=== PATIENT | male | born 1940 | race Caucasian/White ===

== ENCOUNTER 2020-12-04 08:42 | Inpatient (IN) | payer MEDICARE ==
[~2020-12-04] VITALS: Ht 177.8 cm; Wt 52.3 kg
[2020-12-04] VITALS (7 sets, daily range): BP systolic 137–173; BP diastolic 58–107
[~2020-12-04 08:42] MED LIST: AMLO-213 PO; CALC500T53 PO; CLON0.1T14 PO; CLON0.5T4 PO; ERGO500040 PO; FAMO20TA8 PO; INSU100I19 SQ; INSU100V28 SQ
--- NOTE | 2020-12-04 08:47 | NUR ---
TO ER BED 3, C/O slipped and fall, no loc, BS reading HI on scene, BS still on HI, md at bedside for eval.
[2020-12-04] MEDS ORDERED: ACETAMINOPHEN ES 500 MG TABLET ONE (08:59)
[2020-12-04] MEDS ORDERED: IV NS 0.9% 1,000 ML BAG IV ONE ×2 (09:00→11:00)
[2020-12-04] MEDS ORDERED: ACETAMINOPHEN ES 500 MG TABLET PO ONE (09:00)
[2020-12-04] MEDS ORDERED: METF-440 PO (09:35)
--- NOTE | 2020-12-04 09:37 | NUR ---
UNABLE TO GIVE URINE AT THIS TIME, WILL TRY AGAIN
[2020-12-04 09:46] LABS: BASOPHILS # (AUTO) 0.1 K/uL (0.0-0.2); BASOPHILS % (AUTO) 0.6 % (0.0-2.0); EOSINOPHILS % (AUTO) 1.5 % (0.0-6.0); HEMATOCRIT 35 % (39-51); HEMOGLOBIN 11.3 g/dL (13.5-17.5); LYMPHOCYTES % (AUTO) 7.6 % (20.0-44.0); MEAN CORPUSCULAR HGB CONC 33 g/dl (31.0-36.0); MEAN CORPUSCULAR VOLUME 94 fL (80-96); MONOCYTES # (AUTO) 0.9 K/uL (0.1-1.30); MONOCYTES % (AUTO) 6.8 % (2.0-12.0); NEUTROPHILS # (AUTO) 10.7 K/uL (1.8-8.9); NEUTROPHILS % (AUTO) 83.5 % (43.0-81.0); PLATELET COUNT (AUTO) 204 K/uL (150-450); RED BLOOD CELL COUNT(AUTO) 3.66 MIL/uL (4.5-6.0); WHITE BLOOD COUNT (AUTO) 12.8 K/uL (4.3-11.0)
--- NOTE | 2020-12-04 09:47 | NUR ---
TAKEN TO CT
[2020-12-04 10:08] LABS: ALANINE AMINOTRANSFERASE 32 U/L (12-78); ALBUMIN 3.6 g/dL (3.4-5.0); ALKALINE PHOSPHATASE 237 U/L (46-116); ASPARTATE AMINOTRANSFERASE 6 U/L (15-37); BILIRUBIN,DIRECT 0.2 mg/dL (0.0-0.2); BILIRUBIN,TOTAL 0.5 mg/dL (0.2-1.0); CALCIUM, SERUM 12.2 mg/dL (8.5-10.1); CARBON DIOXIDE 23 mmol/L (21-32); CHLORIDE 107 mmol/L (98-107); CREATININE 2.4 mg/dL (0.6-1.3); POTASSIUM 5.1 mmol/L (3.5-5.1); SODIUM SERUM 143 mmol/L (136-145); UREA NITROGEN, BLOOD 57 mg/dL (7-18)
[2020-12-04 10:16] LABS: GLUCOSE 798 mg/dL (74-106)
--- NOTE | 2020-12-04 10:37 | NUR ---
PANEL ON-CALL PAGED
[2020-12-04] MEDS ORDERED: INS (REG) DRIP 100 U/100 ML NS IV PRN (11:00)
--- NOTE | 2020-12-04 12:11 | NUR ---
LAB AT BEDSIDE FOR REPEAT LACTIC
--- NOTE | 2020-12-04 12:15 | NUR ---
BS 540, AWARE
--- NOTE | 2020-12-04 12:53 | NUR ---
CLAUDIA BYRD AT BEDSIDE
--- NOTE | 2020-12-04 12:54 | NUR ---
UNABLE TO GIVE URINE AT THIS TIME
--- NOTE | 2020-12-04 13:10 | NUR ---
CLAUDIA NICE (NEPHEW) [phone]
[2020-12-04] MEDS ORDERED: ONDANSETRON HCL/PF 4 MG/2 ML VIAL IVP PRN (14:00)
[2020-12-04] MEDS ORDERED: INSULIN REGULAR, HUMAN 100 UNIT in IV NS 0.9% 99 ML IV PRN (14:00)
[2020-12-04] MEDS ORDERED: Z GUARD REMEDY 2 OZ OINT TP PRN (14:00)
[2020-12-04] MEDS ORDERED: ENOXAPARIN SODIUM 40 MG/0.4 ML DISP.SYRIN SQ SCH (14:00)
[2020-12-04] MEDS ORDERED: MAG HYDROX/AL HYDROX/SIMETH 30 ML UDC PO PRN (14:00)
[2020-12-04] MEDS ORDERED: HYDROCODONE/APAP 5/325MG TABLET PO PRN (14:00)
[2020-12-04] MEDS ORDERED: ACETAMINOPHEN 325 MG TABLET PO PRN (14:00)
[2020-12-04] MEDS ORDERED: MAGNESIUM HYDROXIDE 30 ML UDC PO PRN (14:00)
[2020-12-04] MEDS ORDERED: ENOXAPARIN SODIUM 40 MG/0.4 ML DISP.SYRIN SQ ONE (14:57)
--- NOTE | 2020-12-04 15:27 | NUR ---
TAKEN TO CT Addendum: 12/04/20 at 1527 by ANGELICA FOR BED 1
--- NOTE | 2020-12-04 16:14 | NUR ---
NURSING SUP GAVE ICU 259.
[2020-12-04] MEDS: IV NS 0.9% 1,000 ML IV PRN ×2 (16:21→22:26)
--- NOTE | 2020-12-04 16:27 | NUR ---
URINE COLLECTED AND SENT TO LAB
--- NOTE | 2020-12-04 16:36 | NUR ---
REPORT GIVEN TO GAIL CODY FOR DELORES
--- NOTE | 2020-12-04 16:50 | NUR ---
COLORIST FORMULATOR NOTES RECEIVED PT FROM ER VIA CITLALI CAPONE HYPEROSMOLAR NON KETOTIC, ALERT BUT CONFUSED, APHASIC, 98% O2 SAT ON ROOM AIR, NOT ON RESPIRATORY DISTRESS, NO SOB, NO SIGNS OF PAIN, NO GRIMACINGS, SINUS RHYTHM ON MONITOR HR 65. IV ACCESS RAC G 20 PATENT INTACT WITH NS 150 ML/HR INFUSING WELL. ON 3 UNITS/HR, LAST ACCUCHECK AT 540 MG/DL. PATIENT CARE DONE, CHANGED AND CLEANED. SAFETY PRECAUTIONS IN PLACE, BED LOW LOCKED, HOB UP 3O DEG, SR UP X 2, CALL LIGHT WITHIN REACH. WILL CONTINUE TO MONITOR. PHOTOS OF SKIN ISSUES TAKEN AND PLACED INSIDE CHART.
[2020-12-04 17:11] LABS: BILIRUBIN,URINE NEGATIVE (NEGATIVE); COLOR,URINE YELLOW (YELLOW); LEUKOCYTE ESTERASE ,URINE NEGATIVE (NEGATIVE); NITRITE, URINE NEGATIVE (NEGATIVE); PROTEIN,URINE TRACE mg/dl (NEGATIVE); UGLUCOSE >=1000 mg/dL (NEGATIVE); UROBILINOGEN,URINE 0.2 EU/dL (0.2)
[2020-12-04 17:21] LABS: BACTERIA,URINE Few /HPF (None Seen); SQUAMOUS EPITHELIAL CELL,UR Few /HPF (None Seen); WBC,URINE 0-2 /HPF (0-3)
[2020-12-04 17:23] LABS: CREATININE, URINE 26.8 MG/DL (30.0-125.0); URINE TOTAL PROTEIN 66.1 mg/dL (0-11.9)
--- NOTE | 2020-12-04 18:17 | NUR ---
RN NOTES INFORMED DR. PARMJIT ALMENDAREZ, CURRENT ACCUCHECK 130 MG/DL. PER MD STOP INSULIN DRIP, CHANGE TO MODERATE ACHS SLIDING SCALE. AND PLACE ON DIABETIC DIET.
[2020-12-04] MEDS ORDERED: *INSULIN REGULAR(HUMULIN R)HUM 100 UNIT/ML VIAL SQ PRN (18:30)
[2020-12-04] MEDS ORDERED: DEXTROSE 50%-WATER 50 ML DISP.SYRIN IV PRN (18:30)
[2020-12-04 18:57] LABS: CALCIUM, SERUM 12.1 mg/dL (8.5-10.1); CARBON DIOXIDE 23 mmol/L (21-32); CHLORIDE 118 mmol/L (98-107); CREATININE 1.9 mg/dL (0.6-1.3); GLUCOSE 103 mg/dL (74-106); SODIUM SERUM 153 mmol/L (136-145); UREA NITROGEN, BLOOD 53 mg/dL (7-18)
--- NOTE | 2020-12-04 20:00 | NUR ---
SWITCH HOUSE OPERATOR NOTES Received patient awake alert and oriented x2.Follows simple commands.Able to verbalized needs. VS WNL.SR.Saturation in RA 96%-97%.No acute distress noted.IVF NS infusing to RAC site intact. Denies pain or any discomfort.Turned and repositioned.
--- NOTE | 2020-12-04 22:00 | NUR ---
GENERAL SERVICE OFFICER NOTES Patient incontinent of urine.Kept clean and dry.Noted patient SB 43-47 Remains asymptomatic. Blood sugar monitored and coverage given per sliding scale.Continue monitoring.
[2020-12-04] MEDS: BLOOD SUGAR DIAGNOSTIC 1 EACH STRIP VI SCH (22:05)
[2020-12-04] MEDS: INSULIN REGULAR, HUMAN 100 UNIT/ML 3 ML VIAL SQ PRN (22:06)
--- NOTE | 2020-12-04 22:30 | NUR ---
TEA AND SPICE SUPERVISOR NOTES Unable to do strict intake and output.Patient refused arora cath and condom cath.
[2020-12-05] VITALS (10 sets, daily range): BP systolic 84–183; BP diastolic 54–68
--- NOTE | 2020-12-05 | NUR ---
Patient awake bed bath rendered for comfort.All linens changed.Turned and repositioned. No distress noted.
--- NOTE | 2020-12-05 02:00 | NUR ---
STATEMENT REQUEST CLERK NOTES Patient awake and hungry.Snacks given with good po intake.Aspiration precaution observed.
[2020-12-05 04:35] LABS: BASOPHILS # (AUTO) 0.1 K/uL (0.0-0.2); BASOPHILS % (AUTO) 0.8 % (0.0-2.0); EOSINOPHILS % (AUTO) 8.8 % (0.0-6.0); HEMATOCRIT 36 % (39-51); HEMOGLOBIN 11.7 g/dL (13.5-17.5); LYMPHOCYTES # (AUTO) 2.1 K/uL (0.8-4.8); LYMPHOCYTES % (AUTO) 13.8 % (20.0-44.0); MEAN CORPUSCULAR HGB CONC 33 g/dl (31.0-36.0); MEAN CORPUSCULAR VOLUME 93 fL (80-96); MONOCYTES # (AUTO) 0.9 K/uL (0.1-1.30); MONOCYTES % (AUTO) 5.8 % (2.0-12.0); NEUTROPHILS # (AUTO) 10.6 K/uL (1.8-8.9); NEUTROPHILS % (AUTO) 70.8 % (43.0-81.0); PLATELET COUNT (AUTO) 210 K/uL (150-450); RED BLOOD CELL COUNT(AUTO) 3.84 MIL/uL (4.5-6.0); WHITE BLOOD COUNT (AUTO) 14.9 K/uL (4.3-11.0)
[2020-12-05 04:55] LABS: CHOLESTEROL 116 mg/dL (<200); HDL CHOLESTEROL 40 mg/dL (40-60); LDL 66 mg/dL (0-99); THYROID STIMULATING HORMONE 1.401 uIU/mL (0.358-3.74); TRIGLYCERIDES 79 mg/dL (30-150)
[2020-12-05 04:56] LABS: CALCIUM, SERUM 11.7 mg/dL (8.5-10.1); CARBON DIOXIDE 24 mmol/L (21-32); CHLORIDE 119 mmol/L (98-107); CREATININE 1.7 mg/dL (0.6-1.3); GLUCOSE 163 mg/dL (74-106); MAGNESIUM 2.7 mg/dL (1.8-2.4); PHOSPHORUS 4.4 mg/dL (2.5-4.9); POTASSIUM 4.1 mmol/L (3.5-5.1); SODIUM SERUM 152 mmol/L (136-145); UREA NITROGEN, BLOOD 45 mg/dL (7-18)
[2020-12-05] MEDS: IV NS 0.9% 1,000 ML IV PRN (05:05)
--- NOTE | 2020-12-05 06:17 | NUR ---
PERFUSIONIST NOTES PLEASE DISREGARD CRITICAL NOTIFICATION ALBUMIN AND BUN.WRONG ENTRY.
--- NOTE | 2020-12-05 06:30 | NUR ---
ELECTRICAL LINEMAN NOTES Patient resting in no acute distress.Afebrile.Remains Wil hi 30's to 40's.- but goes up to 60's with activity.Denies chest pain or sob.Saturation 97%-99% on RA.Incontinent of urine large amount.Kept clean and dry.No BM noted.Turned and repositioned q 2 hrs.IVF infusing well. Will endorse to day shift for further care and management.
[2020-12-05] MEDS ORDERED: PANTOPRAZOLE 40 MG TABLET.DR PO SCH (07:30)
--- NOTE | 2020-12-05 08:00 | NUR ---
RN NOTES SEEN PATIENT A/A/O X2, FORGETFUL, ROOM AIR NO ACUTE RESPIRATORY DISTRESS. PATIENT NOTED HE TRYING TO GO BATHROOM. PATIENT HIGH FALL RIST, WILLING TO SEE P TODAY. BS-153 MG/DL, COVERAGE GIVEN, ADMINISTERED SCHEDULED MEDICATION. TOLERATED BREAKFAST 70% SELF. NEEDS ATTENDED AND ANTICIPATED. PATIENT WILL DOWNGRADE TODAY WAITING FOR BED. CALL LIGHT WITHIN TO REACH. WILL MONITORING.
[2020-12-05] MEDS: BLOOD SUGAR DIAGNOSTIC 1 EACH STRIP VI SCH ×2 (08:19→11:40)
[2020-12-05] MEDS: INSULIN REGULAR, HUMAN 100 UNIT/ML 3 ML VIAL SQ PRN ×2 (08:20→11:47)
--- NOTE | 2020-12-05 10:00 | NUR ---
rn notes transferred patient to the med/surge unit room 116 bed 1. patient stable, vss. Bedside report given RN follow plan of care.
--- NOTE | 2020-12-05 10:08 | NUR ---
RECEIVED FROM ICU AWAKE ,ALERT, NO ACUTE DISTRESS.
--- NOTE | 2020-12-05 10:49 | NUR ---
MS RN NOTES NOTIFIED THIS MORNING, ELEVATE NA, CL. ORDERS OBTAIN. IV DISCONTINUED.
--- NOTE | 2020-12-05 11:55 | NUR ---
ACCUCHECK PERFORMED ON PT. BLOOD SUGAR 164 WITH COVERAGE OF 3 UNITS. PT REFUSED INSULIN. NOTIFIED.
[2020-12-05] MEDS ORDERED: Blood Sugar Diagnostic VI (13:30)
[2020-12-05] MEDS ORDERED: ENOXAPARIN SODIUM 30 MG/0.3 ML DISP.SYRIN SQ SCH (15:00)
--- NOTE | 2020-12-05 15:09 | NUR ---
PROVIDED EDUCATION TO PT ON MEDICATION, LOVENOX, HOWEVER PT REFUSED MEDICATION.
--- NOTE | 2020-12-05 17:46 | NUR ---
RN CLOSING NOTES PT WAS DISCHARGED PER MD ORDER. IV DISCHARGED AND DRY DRESSING APPLIED. NO SIGNS OF INFECTION DISCHARGE INSTRUCTIONS GIVEN WITH FOLLOW UP CARE INSTRUCTIONS
== END 2020-12-05 17:32 | disposition home health service (06) | DRG 637 ==
LOC: ER 08:47 → ICU 16:16 → MEDSG1 12-05 10:07
DX: E11.00 Type 2 diabetes mellitus with hyperosmolarity without nonketotic hyperglycemic-hyperosmolar coma (NKHHC) (principal); N17.0 Acute kidney failure with tubular necrosis; G93.49 Other encephalopathy; F03.90 Unspecified dementia, unspecified severity, without behavioral disturbance, psychotic disturbance, mood disturbance, and anxiety; E86.0 Dehydration; I10 Essential (primary) hypertension; I25.10 Atherosclerotic heart disease of native coronary artery without angina pectoris; Z79.84 Long term (current) use of oral hypoglycemic drugs; Z20.822 Contact with and (suspected) exposure to COVID-19; Z79.899 Other long term (current) drug therapy; D72.829 Elevated white blood cell count, unspecified; E83.52 Hypercalcemia; D64.9 Anemia, unspecified; M47.815 Spondylosis without myelopathy or radiculopathy, thoracolumbar region; Z96.641 Presence of right artificial hip joint; Y92.009 Unspecified place in unspecified non-institutional (private) residence as the place of occurrence of the external cause; W01.0XXA Fall on same level from slipping, tripping and stumbling without subsequent striking against object, initial encounter
CPT/HCPCS: 36415; 70450-TC; 71045-TC; 76770-TC; 80048-TC; 80061-TC; 80076-TC; 81001; 82570-TC; 82962-TC; 83605-TC; 83735-TC; 83970; 84100-TC; 84155-TC; 84300-TC; 84443-TC; 84484-TC; 85025-TC; 87040-TC; 87081-TC; 97116-TC; 97530-TC; C9803; G0378; J1650; J1815; J7030

== ENCOUNTER 2021-03-05 10:01 | Inpatient (IN) | payer MEDICARE ==
[~2021-03-05] VITALS: Ht 172.7 cm; Wt 42.2 kg
[~2021-03-05 10:01] MED LIST changes: +Blood Sugar Diagnostic VI; -CALC500T53 PO; -CLON0.1T14 PO; -CLON0.5T4 PO; -ERGO500040 PO; -FAMO20TA8 PO; -INSU100I19 SQ; -INSU100V28 SQ; +METF-440 PO
--- NOTE | 2021-03-05 10:09 | NUR ---
keron [phone]
--- NOTE | 2021-03-05 10:10 | NUR ---
DR. GARCÍA AT BS FOR EVAL.
--- NOTE | 2021-03-05 10:29 | NUR ---
bibra39, from home, c/o sob 98% on room air. PT AAOX3, VSS. RR EVEN & UNLABORED. DENIES CP, DIZZINESS, N/V AT THIS TIME. PLACED ON OVERAGE SHORTAGE AND DAMAGE CLERK, SR. O2 SAT 98% RA. WILL CONT TO MONITOR.
[2021-03-05] MEDS ORDERED: BLOO-668 IN (10:33)
[2021-03-05 10:46] LABS: BASOPHILS # (AUTO) 0.1 K/uL (0.0-0.2); BASOPHILS % (AUTO) 0.4 % (0.0-2.0); EOSINOPHILS % (AUTO) 0.4 % (0.0-6.0); HEMATOCRIT 43 % (39-51); HEMOGLOBIN 13.7 g/dL (13.5-17.5); LYMPHOCYTES # (AUTO) 1.2 K/uL (0.8-4.8); LYMPHOCYTES % (AUTO) 6.8 % (20.0-44.0); MEAN CORPUSCULAR HGB CONC 32 g/dl (31.0-36.0); MEAN CORPUSCULAR VOLUME 92 fL (80-96); MONOCYTES # (AUTO) 0.9 K/uL (0.1-1.30); MONOCYTES % (AUTO) 5.3 % (2.0-12.0); NEUTROPHILS # (AUTO) 15.7 K/uL (1.8-8.9); NEUTROPHILS % (AUTO) 87.1 % (43.0-81.0); PLATELET COUNT (AUTO) 326 K/uL (150-450); RED BLOOD CELL COUNT(AUTO) 4.63 MIL/uL (4.5-6.0); WHITE BLOOD COUNT (AUTO) 18.1 K/uL (4.3-11.0)
[2021-03-05 10:57] LABS: CALCIUM, SERUM 11.8 mg/dL (8.5-10.1); CARBON DIOXIDE 22 mmol/L (21-32); CHLORIDE 106 mmol/L (98-107); CREATININE 2.8 mg/dL (0.6-1.3); GLUCOSE 196 mg/dL (74-106); POTASSIUM 3.2 mmol/L (3.5-5.1); SODIUM SERUM 142 mmol/L (136-145)
[2021-03-05 11:01] LABS: UREA NITROGEN, BLOOD 80 mg/dL (7-18)
--- NOTE | 2021-03-05 11:01 | NUR ---
ABNORMAL LAB BUN 80
[2021-03-05 11:10] LABS: ALANINE AMINOTRANSFERASE 15 U/L (12-78); ALBUMIN 3.3 g/dL (3.4-5.0); ALKALINE PHOSPHATASE 119 U/L (46-116); ASPARTATE AMINOTRANSFERASE 11 U/L (15-37); BILIRUBIN,DIRECT 0.2 mg/dL (0.0-0.2); BILIRUBIN,TOTAL 0.6 mg/dL (0.2-1.0); TOTAL PROTEIN, SERUM 7.9 g/dL (6.4-8.2)
--- NOTE | 2021-03-05 11:48 | NUR ---
CALLED NURSING SUP REGARDING PT BED
--- NOTE | 2021-03-05 11:50 | NUR ---
PT RESTING, EASILY AWAKEN BY VERBAL STIMULI. DENIES CP, SOB, DIZZINESS, N/V AT THIS TIME. WILL CONT TO MONITOR.
--- NOTE | 2021-03-05 11:55 | NUR ---
PAGED [facility].
[2021-03-05] MEDS ORDERED: MAG HYDROX/AL HYDROX/SIMETH 30 ML UDC PO PRN (13:30)
[2021-03-05] MEDS ORDERED: POTASSIUM CHLORIDE 20 MEQ TAB.PRT.SR PO ONE (13:30)
[2021-03-05] MEDS ORDERED: ACETAMINOPHEN 325 MG TABLET PO PRN (13:30)
[2021-03-05] MEDS ORDERED: MAGNESIUM HYDROXIDE 30 ML UDC PO PRN (13:30)
[2021-03-05] MEDS ORDERED: Z GUARD REMEDY 2 OZ OINT TP PRN (13:30)
[2021-03-05] MEDS ORDERED: ONDANSETRON HCL/PF 4 MG/2 ML VIAL IVP PRN (13:30)
--- NOTE | 2021-03-05 13:43 | NUR ---
REPORT GIVEN TO [place] FOR DELORES.
[2021-03-05 14:00] VITALS: BP 143/54
--- NOTE | 2021-03-05 14:00 | NUR ---
tele manager house: admission admitted this 80 year old male pt from [facility] with dx: paty. awake, a/ox3. denies sob, chest pain, and n/v. pt c/o constipation with rectal pain. kept comfortable. kept clean and dry. place pt on tele sb=55. vss, afebrile. noted with scarring to sacral and left hip. wound consult ordered. oriented to room and surroundings. will continue to monitor.
[2021-03-05] MEDS: IV 1/2NS 1000 ML 1,000 ML IV PRN (15:18)
--- NOTE | 2021-03-05 15:45 | NUR ---
tele commercial truck driver: notes dr. palomo notified re: episodes of bradycardia with pvc's on the 40's-50 and with lowest of 39 and says to continue to monitor. cn aware.
--- NOTE | 2021-03-05 17:45 | NUR ---
tele varying exceptionalities teacher: md visit dr. palomo at bedside at this time.
--- NOTE | 2021-03-05 19:10 | NUR ---
tele preparation department supervisor: notes bedside report given to guerrero (wolfgang) for continuity of care.
--- NOTE | 2021-03-05 19:55 | NUR ---
FACILITIES MANAGEMENT EXECUTIVE OPENING NOTES RECEIVED PATIENT AWAKE IN BED RESTING. PT'S ALERT AND ORIENTEDX3. PATIENT'S STABLE ON RA. PATIENT'S CONNECTED TO A TELE MONITOR SHOWING NO CARDIAC DISTRESS AT THIS TIME. IV ACCESS NOTED ON RAC #20 WHICH IS RUNNING 1/2 NS @75ML/HR. PATIENT'S IN NO ACUTE DISTRESS AT THIS TIME. SAFETY MEASURES IN PLACE: BED LOCKED, BED ALARM ON, SR UPX3, AND CALL LIGHT WITHIN REACH OF THE PATIENT. WILL CONTINUE TO MONITOR THE PATIENT.
[2021-03-05 20:00] VITALS: BP 121/77
--- NOTE | 2021-03-05 21:33 | NUR ---
Pt confused and uncooperative. Per GLO Sarmiento, do echo tomorrow.
[2021-03-05] MEDS: ZOLPIDEM TARTRATE 5 MG TABLET PO PRN ×2 (21:47→23:59)
--- NOTE | 2021-03-05 22:48 | NUR ---
TREE WARDEN NOTES PATIENT HAD AN EPISODE OF VOMITING. PATIENT WAS GIVEN 4MG OF ZOFRAN IV AT THIS TIME. WILL REASSESS THE PATIENT AT 2318.
--- NOTE | 2021-03-05 23:59 | NUR ---
SOCIAL WORK SUPERVISOR NOTES PATIENT C/O NO SLEEP. PATIENT WAS GIVEN 5MG OF AMBIEN PO AT THIS TIME. WILL REASSESS THE PATIENT. AT 0059.
[2021-03-06] VITALS: BP 117/69
[2021-03-06] MEDS ORDERED: HEPARIN SODIUM, PORCINE 5000 UNITS/1 ML VIAL IV ONE (00:30)
[2021-03-06] MEDS ORDERED: HEPARIN INFUSION/D5W 500 ML IV PRN (00:30)
[2021-03-06] MEDS: IV 1/2NS 1000 ML 1,000 ML IV PRN ×2 (03:55→18:47)
[2021-03-06 04:00] VITALS: BP 115/70
--- NOTE | 2021-03-06 06:38 | NUR ---
HOT AIR FURNACE INSTALLER REPAIRER CLOSING NOTES PATIENT WAS SEEN AWAKE RESTING IN BED. PT'S ALERT AND ORIENTED X3 AND CAN BE FORGETFUL AT TIMES.. PATIENT'S STABLE ON RA. PATIENT'S CONNECTED TO A TELE MONITOR SHOWING SINUS RHYTHM. IV ACCESS NOTED ON RFA G#22 WHICH IS INTACT, PATENT, AND FLUSHING WELL. PATIENT'S IN NO ACUTE DISTRESS AT THIS TIME. SAFETY MEASURES IN PLACE: BED LOCKED, BED ALARM ON, SR UPX3, AND CALL LIGHT WITHIN REACH OF THE PATIENT. WILL ENDORSE CARE TO THE DAY SHIFT NURSE.
--- NOTE | 2021-03-06 07:35 | NUR ---
SCRUM COACH OPENING NOTES RECEIVED PATIENT IN BED AWAKE, ALERT AND ORIENTED X3 WITH EPISODES OF FORGETFULNESS AND CONFUSION. PATIENT IS CONNECTED TO A TELE MONITOR SHOWING SINUS RHYTHM. IV ACCESS NOTED ON RFA G#22 WHICH IS INTACT, PATENT, AND FLUSHING WELL. PATIENT'S IN NO ACUTE DISTRESS AT THIS TIME. SAFETY MEASURES IN PLACE: BED LOCKED, BED ALARM ON, SR UPX3, AND CALL LIGHT WITHIN REACH OF THE PATIENT. WILL CONTINUE TO MONITOR.
[2021-03-06 08:00] VITALS: BP 126/75
[2021-03-06] MEDS: PANTOPRAZOLE 40 MG TABLET.DR PO SCH (08:04)
--- NOTE | 2021-03-06 09:02 | NUR ---
WOUND CARE CONSULT: PT PRESENTS WITH CACHEXIA, SCARRING TO LEFT HIP AND SACRUM, PRESENT ON ADMISSION. RECOMMENDATIONS MADE FOR SKIN PROTECTION. DISCUSSED WITH NURSING STAFF. PT IS ON [facility] BED. IN AGREEMENT WITH PLAN OF CARE. Addendum: 03/06/21 at 0904 by DUY ANGEL WNDNU Amended: Links added.
[2021-03-06 09:48] LABS: BASOPHILS % (AUTO) 0.1 % (0.0-2.0); HEMATOCRIT 41 % (39-51); HEMOGLOBIN 13.5 g/dL (13.5-17.5); LYMPHOCYTES # (AUTO) 0.5 K/uL (0.8-4.8); LYMPHOCYTES % (AUTO) 2.1 % (20.0-44.0); MEAN CORPUSCULAR HGB CONC 33 g/dl (31.0-36.0); MEAN CORPUSCULAR VOLUME 92 fL (80-96); MONOCYTES % (AUTO) 4.1 % (2.0-12.0); NEUTROPHILS # (AUTO) 22.6 K/uL (1.8-8.9); NEUTROPHILS % (AUTO) 93.7 % (43.0-81.0); PLATELET COUNT (AUTO) 305 K/uL (150-450); WHITE BLOOD COUNT (AUTO) 24.1 K/uL (4.3-11.0)
[2021-03-06 10:27] LABS: CALCIUM, SERUM 11.8 mg/dL (8.5-10.1); CARBON DIOXIDE 22 mmol/L (21-32); CHLORIDE 104 mmol/L (98-107); CREATININE 3.3 mg/dL (0.6-1.3); GLUCOSE 181 mg/dL (74-106); MAGNESIUM 2.7 mg/dL (1.8-2.4); POTASSIUM 4.4 mmol/L (3.5-5.1); SODIUM SERUM 144 mmol/L (136-145)
[2021-03-06 11:03] LABS: UREA NITROGEN, BLOOD 90 mg/dL (7-18)
--- NOTE | 2021-03-06 11:09 | NUR ---
SS Consult requested for elderly pt. living alone and cachectic. Pt. is a 80-year-old male who presents to the ED with shortness of breath. Per the EMR, the caregiver called his family and requested the pt. come to the ED. Upon SS consult, pt. was alert and oriented x1 (name). Pt. presented with a dysphoric mood and appeared unkempt. Pt. presented with poor insight and slow speech. Pt. provided appropriate eye contact. SW explored pt.s living situation. Pt. was unable to state his address. Pt. stated he lived alone and cooked for himself. Pt. stated a caregiver named, Maddy Garcia, came and saw him 3-4 times a week. Pt. was unable to provide contact information for the caregiver. Pt. stated he was in contact with his nephew Willian Garcia. Pt. was unable to provide contact information for Willian. SW explored whether pt. is ambulatory. Pt. stated he needed to vomit and asked for a nurse. Pt. was unable to complete the rest of the interview. PEG completed an APS report for self-neglect. Intake # : [id number]
--- NOTE | 2021-03-06 11:27 | NUR ---
PEG spoke with [facility] regarding pt.'s placement. CM will look for placement for pt. once he is ready for discharge.
[2021-03-06] MEDS ORDERED: DEXTROSE 50%-WATER 50 ML DISP.SYRIN IV PRN (14:30)
[2021-03-06 16:00] VITALS: BP 126/75
[2021-03-06] MEDS: BLOOD SUGAR DIAGNOSTIC 1 EACH STRIP IN SCH ×2 (16:39→22:08)
--- NOTE | 2021-03-06 16:39 | NUR ---
LONG HAUL TRUCK DRIVER NOTE BS 229 MG/DL,WITHHOLD INSULIN COVERAGE PATIENT NOT EATING.
--- NOTE | 2021-03-06 17:40 | NUR ---
VARNISH SUPERVISOR NOTES DR HADDAD ORDERED BLOOD SUGAR CHECK ACHS WITH LOW SSI COVERAGE AND URINALYSIS ADDITIONAL ORDER FOR URINE CULTURE AND BLOOD CULTURE X 2.
--- NOTE | 2021-03-06 18:12 | NUR ---
PLANNING INTERN CLOSING NOTES PATIENT IN BED AWAKE, RESTING COMFORTABLY. PT'S ALERT AND ORIENTED X2 WITH CONFUSION FORGETFULNESS PATIENT'S ON O2 INHALATION AT 2 LPM VIA NASAL CANNULA. PATIENT'S CONNECTED TO A TELE MONITOR SHOWING SINUS RHYTHM. IV ACCESS ON RFA G#22 WHICH IS INTACT, PATENT, AND FLUSHING WELL. PATIENT'S IN NO ACUTE DISTRESS AT THIS TIME. SAFETY MEASURES IN PLACE: BED LOCKED, BED ALARM ON, SR UPX3, AND CALL LIGHT WITHIN REACH OF THE PATIENT. WILL ENDORSE CARE TO THE NEXT SHIFT.
--- NOTE | 2021-03-06 19:35 | NUR ---
leather goods ii assembler opening notes Received Pt from morning nurse. Pt is sitting in bed comfortably watching TV. Pt is alert and oriented X3. Respiration is normal in 2 L NC. No SOB. No S/S of distress noted. Pt denies any pain at this time. Tele monitor showed SR hr at 90. IV site at RFA # 22 is clean, intact and infusing well 1/2 NS@ 75 ml/hr. Safety precautions is maintained. Bed at low position, brakes locked, side rails upX3. bed alarm is on and call light is within reach. Will continue to monitor.
[2021-03-06 20:00] VITALS: BP 146/52
[2021-03-06] MEDS: PIPERACILLIN /TAZOBACTAM 2.25 G in IV D5W 50 ML IV SCH (21:29)
--- NOTE | 2021-03-06 21:40 | NUR ---
RN notes Pt is complaining of generalized pain and requesting pain med. administered tylenol 325 mg/2 tabs/po/prn as ordered for pain. Safety precaution is maintained. Will continue to monitor.
[2021-03-06 21:49] LABS: BILIRUBIN,URINE NEGATIVE (NEGATIVE); COLOR,URINE YELLOW (YELLOW); LEUKOCYTE ESTERASE ,URINE MODERATE (NEGATIVE); NITRITE, URINE NEGATIVE (NEGATIVE); PH,URINE 5.5 (5.0-8.0); PROTEIN,URINE 30 mg/dl (NEGATIVE); UGLUCOSE NEGATIVE (NEGATIVE); UROBILINOGEN,URINE 0.2 EU/dL (0.2)
[2021-03-06 22:03] LABS: BACTERIA,URINE 4+ /HPF (None Seen); RBC,URINE 51-80 /HPF (0-2); SQUAMOUS EPITHELIAL CELL,UR 0-2 /HPF (None Seen); WBC,URINE TOO NUMEROUS TO COUN /HPF (0-3)
--- NOTE | 2021-03-06 22:30 | NUR ---
RN notes Pt's blood sugar HS 222. Held insulin coverage due to Pt refusing to eat. Offered Pt to eat several times and explained risks and benefits. Pt keep refusing. Will continue to monitor.
--- NOTE | 2021-03-06 22:41 | NUR ---
RN notes Inserted straight cath but Unsuccessful to get UA. Pt keep refusing and stated "No!! No!! No!!" Explained risks and benefits. Pt keep refusing. Will try again later.
[2021-03-06] MEDS: ZOLPIDEM TARTRATE 5 MG TABLET PO PRN (23:48)
--- NOTE | 2021-03-06 23:49 | NUR ---
RN notes Pt requesting a sleeping pill. Administered ambien 5 mg/1 tab/po /prn as ordered for sleeping. safety precautions is maintained. Will continue to monitor.
[2021-03-07] VITALS: BP 120/80
--- NOTE | 2021-03-07 00:12 | NUR ---
RN notes RT at the bedside to help with suctioning. O2 sat is 93% on 2 L NC. No SOB. No S/S of distress noted.
[2021-03-07 04:00] VITALS: BP 114/68
[2021-03-07] MEDS: PIPERACILLIN /TAZOBACTAM 2.25 G in IV D5W 50 ML IV SCH ×3 (05:09→21:09)
[2021-03-07 06:01] LABS: BASOPHILS % (AUTO) 0.2 % (0.0-2.0); HEMATOCRIT 39 % (39-51); HEMOGLOBIN 12.5 g/dL (13.5-17.5); LYMPHOCYTES # (AUTO) 0.5 K/uL (0.8-4.8); LYMPHOCYTES % (AUTO) 2.7 % (20.0-44.0); MEAN CORPUSCULAR HGB CONC 33 g/dl (31.0-36.0); MEAN CORPUSCULAR VOLUME 93 fL (80-96); MONOCYTES # (AUTO) 1.1 K/uL (0.1-1.30); MONOCYTES % (AUTO) 6.3 % (2.0-12.0); NEUTROPHILS # (AUTO) 16.3 K/uL (1.8-8.9); NEUTROPHILS % (AUTO) 90.8 % (43.0-81.0); PLATELET COUNT (AUTO) 286 K/uL (150-450); RED BLOOD CELL COUNT(AUTO) 4.16 MIL/uL (4.5-6.0)
[2021-03-07 06:24] LABS: CALCIUM, SERUM 11.6 mg/dL (8.5-10.1); CARBON DIOXIDE 18 mmol/L (21-32); CHLORIDE 102 mmol/L (98-107); CREATININE 3.8 mg/dL (0.6-1.3); GLUCOSE 238 mg/dL (74-106); MAGNESIUM 2.6 mg/dL (1.8-2.4); POTASSIUM 3.9 mmol/L (3.5-5.1); SODIUM SERUM 141 mmol/L (136-145)
[2021-03-07 06:26] LABS: UREA NITROGEN, BLOOD 114 mg/dL (7-18)
[2021-03-07 06:27] LABS: PHOSPHORUS 8.3 mg/dL (2.5-4.9)
--- NOTE | 2021-03-07 07:00 | NUR ---
diversity manager closing notes Pt is resting in bed comfortably. Pt is alert and oriented X3. Respiration is normal in room air. No SOB. No S/S of distress noted. Tele monitor showed SR hr at 83. IV site at RFA # 22 is clean, intact and infusing well 1/2 NS@ 75 ml/hr. Pt keep refusing to eat. offered several times. Kept Pt clean, dry and comfortable. Safety precautions is maintained. Bed at low position, brakes locked, side rails upX3. bed alarm is on and call light is within reach. Will endorse to am nurse for DELORES.
--- NOTE | 2021-03-07 07:00 | NUR ---
RN notes Pt's blood sugar AC is 217. No coverage is given due to Pt keep refusing to eat.
[2021-03-07] MEDS: BLOOD SUGAR DIAGNOSTIC 1 EACH STRIP IN SCH ×4 (07:33→23:08)
--- NOTE | 2021-03-07 07:35 | NUR ---
COMMUNITY ASSOCIATION MANAGER OPENING NOTES RECEIVED PATIENT AWAKE, IN BED.A/O X 3. NO S/SX OF DISTRESS NOTED.NO SOB. BREATHING IS EVEN AND UNLABORED. PT WITH EXTERNAL ENVIRONMENTAL SCIENCE PROFESSOR WITH READING OF SINUS RHYTHM IN 80'S. IV ACCESS RFA#22 PATENT AND INTACT WITH 1/2 NS 0.45% RUNNING AT 75MLS/HR. SAFETY PRECAUTIONS IMPLEMENTED WITH BED LOCKED AND AT LOWEST POSITION AND SIDE RAILS UP X2. CALL LIGHT WITHIN REACH AT ALL TIMES. WILL CONTINUE TO MONITOR PATIENT THROUGHOUT SHIFT.
[2021-03-07 08:00] VITALS: BP 113/58
[2021-03-07] MEDS: AMLODIPINE BESYLATE 10 MG TABLET PO SCH (08:22)
[2021-03-07] MEDS: PANTOPRAZOLE 40 MG TABLET.DR PO SCH (08:22)
--- NOTE | 2021-03-07 11:19 | NUR ---
FOOD ASSEMBLER COMMISSARY KITCHEN NOTES MADE DR. TALAMANTES AWARE OF US KIDNEY RESULTS WITH NO NEW ORDERS. INFORMED DR. TALAMANTES BUN 114 AND CREATININE 3.8 LEVEL
[2021-03-07] MEDS: INSULIN REGULAR, HUMAN 100 UNIT/ML 3 ML VIAL SQ PRN (11:35)
[2021-03-07 12:05] VITALS: BP 98/53
[2021-03-07] MEDS: ENSURE ENLIVE 237 ML LIQUID (VANILLA) PO SCH (16:32)
[2021-03-07] MEDS: IV 1/2NS 1000 ML 1,000 ML IV PRN (17:57)
--- NOTE | 2021-03-07 18:50 | NUR ---
MS RN CLOSING NOTES PATIENT IS ASLEEP IN BED, EASY TO AROUSE. A/O X 2, CONFUSED. NO S/SX OF DISTRESS NOTED.NO SOB. BREATHING IS EVEN AND UNLABORED. IV ACCESS RFA#22 PATENT AND INTACT WITH 1/2 NS 0.45% RUNNING AT 100MLS/HR. SAFETY PRECAUTIONS MAINTAINED CALL LIGHT WITHIN REACH AT ALL TIMES. WILL ENDORSE CONTINUITY OF CARE TO ONCOMING SHIFT.
--- NOTE | 2021-03-07 19:35 | NUR ---
RN NOTES RECEIVED PATIENT SLEEPING BUT AROUSABLE, A/OX2, SKINNY, NOT IN DISTRESS, CALL LIGHT WITHIN REACH, SIDERAILSUPX2, WILL CONTINUE TO MONITOR
--- NOTE | 2021-03-07 19:45 | NUR ---
RN NOTES SPOKE TO HIS NEPHEW CLAUDIA AND GAVE AN UPDATE
[2021-03-07 20:00] VITALS: BP 117/72
--- NOTE | 2021-03-07 22:00 | NUR ---
RN NOTES PATIENT BLOOD SUGAR -193, COVERAGE WAS NOT GIVEN , PT. REFUSED TO EAT
[2021-03-08] MEDS: IV 1/2NS 1000 ML 1,000 ML IV PRN ×2 (03:12→14:29)
[2021-03-08] MEDS: PIPERACILLIN /TAZOBACTAM 2.25 G in IV D5W 50 ML IV SCH ×3 (04:20→20:34)
[2021-03-08 06:57] LABS: BASOPHILS % (AUTO) 0.1 % (0.0-2.0); HEMATOCRIT 35 % (39-51); HEMOGLOBIN 11.4 g/dL (13.5-17.5); LYMPHOCYTES # (AUTO) 0.5 K/uL (0.8-4.8); LYMPHOCYTES % (AUTO) 3.5 % (20.0-44.0); MEAN CORPUSCULAR HGB CONC 33 g/dl (31.0-36.0); MEAN CORPUSCULAR VOLUME 92 fL (80-96); NEUTROPHILS # (AUTO) 13.3 K/uL (1.8-8.9); NEUTROPHILS % (AUTO) 89.4 % (43.0-81.0); PLATELET COUNT (AUTO) 218 K/uL (150-450); RED BLOOD CELL COUNT(AUTO) 3.76 MIL/uL (4.5-6.0); WHITE BLOOD COUNT (AUTO) 14.9 K/uL (4.3-11.0)
--- NOTE | 2021-03-08 06:59 | NUR ---
RN NOTES BLOOD SUGAR -204, COVERAGE WAS NOT GIVEN ., PT REFUSED TO EAT, MORNING CARE RENDERED, TORI UPX2, PT. NEEDS ATTENDED
[2021-03-08 07:11] LABS: CALCIUM, SERUM 12.2 mg/dL (8.5-10.1); CARBON DIOXIDE 12 mmol/L (21-32); CHLORIDE 102 mmol/L (98-107); GLUCOSE 216 mg/dL (74-106); MAGNESIUM 2.7 mg/dL (1.8-2.4); POTASSIUM 3.9 mmol/L (3.5-5.1); SODIUM SERUM 139 mmol/L (136-145)
--- NOTE | 2021-03-08 07:30 | NUR ---
MS RN OPENING NOTES RECEIVED PATIENT RESTING ON BED AND A/O X2. ON O2 AT 2LPM VIA NASAL CANNULA SATURATING WELL. NO SOB NOTED. NOT IN DISTRESS. WITH IV ACCESS AT RIGHT FOREARM G22 WITH 1/2NS AT 75ML/HR INFUSING WELL. SAFETY MEASURES IN PLACE. CALL LIGHT WITHIN REACH. BED ON LOWEST AND LOCKED POSITION X3. WILL CONTINUE TO MONITOR.
[2021-03-08] MEDS: BLOOD SUGAR DIAGNOSTIC 1 EACH STRIP IN SCH ×4 (07:33→22:15)
[2021-03-08 08:35] LABS: PHOSPHORUS 8.3 mg/dL (2.5-4.9); UREA NITROGEN, BLOOD 130 mg/dL (7-18)
[2021-03-08] MEDS: PANTOPRAZOLE 40 MG TABLET.DR PO SCH (08:47)
[2021-03-08] MEDS: AMLODIPINE BESYLATE 10 MG TABLET PO SCH (08:48)
[2021-03-08] MEDS: ENSURE ENLIVE 237 ML LIQUID (VANILLA) PO SCH ×2 (08:56→17:00)
[2021-03-08] MEDS ORDERED: FUROSEMIDE 20 MG/2 ML VIAL IV ONE (14:00)
[2021-03-08] MEDS ORDERED: PAMIDRONATE 90 MG in IV NS 0.9% 500 ML IV ONE (15:00)
--- NOTE | 2021-03-08 17:05 | NUR ---
RN NOTES SPOKE WITH CLAUDIA VIA PHONE AND HE IS REFUSING TO GIVE CONSENT FOR PATIENT'S NGT PLACEMENT. GAVE HIS CONTACT NUMBER TO DR. HADDAD INFORMING DR. HADDAD THAT HE WANTS TO TALK TO HER REGARDING THE PATIENT.
[2021-03-08] MEDS: CINACALCET HCL 30 MG TABLET PO SCH (17:37)
--- NOTE | 2021-03-08 18:53 | NUR ---
MS RN CLOSING NOTES PATIENT RESTING ON BED AND A/O X2-3. ON O2 AT 2LPM VIA NASAL CANNULA SATURATING WELL. NO SOB NOTED. NOT IN DISTRESS. WITH IV ACCESS AT RIGHT FOREARM G22 WITH 1/2NS AT 75ML/HR INFUSING WELL. DUE MEDS GIVEN. SAFETY MEASURES IN PLACE. CALL LIGHT WITHIN REACH. BED ON LOWEST AND LOCKED POSITION X3. WILL ENDORSE TO NEXT SHIFT FOR DELORES.
--- NOTE | 2021-03-08 19:24 | NUR ---
MS RN OPENING NOTES RECEIVED PATIENT RESTING ON BED AND A/O X2-3. ON O2 AT 2LPM VIA NASAL CANNULA SATURATING WELL. NO SOB NOTED, BREATHING EVEN AND UNLABORED. NOT IN RESPIRATORY DISTRESS WITH IV ACCESS AT RIGHT FOREARM G22 WITH 1/2NS AT 150 ML/HR INFUSING WELL. SAFETY MEASURES IN PLACE. CALL LIGHT AND BEDSIDE TABLE WITHIN EASY REACH. BED ON LOWEST AND LOCKED POSITION X3. WILL CONTINUE TO MONITOR PATIENT ACCORDINGLY.
[2021-03-08 20:00] VITALS: BP 111/57
--- NOTE | 2021-03-08 21:30 | NUR ---
RT NOTE PATIENT NT SUCTIONED FOR LARGE, VISCIOUS, AVILA AVILA SECRETIONS. NO ADVERSE REACTIONS. NO RESPIRATORY DISTRESS NOTED.
--- NOTE | 2021-03-08 21:35 | NUR ---
RN NOTES PATIENT NOTED WITH PRODUCTIVE COUGHING, RT ON BEDSIDE AND SUCTIONED SECRETIONS. PT. TOLERATED WELL. MAINTAINED PT. ON SEMI-SUAZO'S POSITION TO FACILITATE GOOD BREATHING. WILL CONTINUE TO MONIOTR PATIENT ACCORDINGLY.
[2021-03-08] MEDS: INSULIN REGULAR, HUMAN 100 UNIT/ML 3 ML VIAL SQ PRN (22:16)
--- NOTE | 2021-03-08 22:17 | NUR ---
RN NOTES PATIENT WITH BLOOD GLUCOSE OF 170 MG/DL. INSULIN DOSE NOT GIVEN, PATIENT REFUSED TO EAT
[2021-03-09] VITALS (40 sets, daily range): BP systolic 48–151; BP diastolic 23–72
[2021-03-09] MEDS: IV 1/2NS 1000 ML 1,000 ML IV PRN ×2 (02:50→12:04)
[2021-03-09] MEDS: PIPERACILLIN /TAZOBACTAM 2.25 G in IV D5W 50 ML IV SCH ×2 (04:18→12:33)
[2021-03-09] MEDS: BLOOD SUGAR DIAGNOSTIC 1 EACH STRIP IN SCH ×3 (05:40→19:39)
[2021-03-09] MEDS: INSULIN REGULAR, HUMAN 100 UNIT/ML 3 ML VIAL SQ PRN ×2 (05:41→19:43)
--- NOTE | 2021-03-09 05:43 | NUR ---
RN NOTES PATIENT WITH BLOOD GLUCOSE OF 137 MG/DL. INSULIN DOSE NOT GIVEN, PATIENT REFUSED TO EAT AT THIS TIME. WILL COMMUNICATE WITH DAY SHIFT NURSE AND WILL CONTINUE TO MONITOR PT ACCDGLY.
--- NOTE | 2021-03-09 05:55 | NUR ---
RT NOTE PATIENT SUCTIONED FOR LARGE, THICK, AVILA SECRETIONS. NO ADVERSE REACTIONS NOTED. NO RESPIRATORY DISTRESS NOTED.
--- NOTE | 2021-03-09 06:29 | NUR ---
MS RN CLOSING NOTES PATIENT RESTING ON BED AND A/O X2-3. ON O2 AT 2LPM VIA NASAL CANNULA SATURATING WELL. NO SOB NOTED AT THIS TIME, BREATHING EVEN AND UNLABORED. WITH IV ACCESS AT RIGHT FOREARM G22 WITH 1/2NS AT 150 ML/HR INFUSING WELL.ALL NEEDS ATTENDED AND ALL DUE MEDS. GIVEN SAFETY MEASURES IN PLACE. CALL LIGHT AND BEDSIDE TABLE WITHIN EASY REACH. BED ON LOWEST AND LOCKED POSITION X3. WILL ENDORSED PT. TO DAY TIME SHIFT NURSE FOR DELORES.
[2021-03-09 06:30] LABS: CALCIUM, SERUM 11.3 mg/dL (8.5-10.1); CARBON DIOXIDE 14 mmol/L (21-32); CHLORIDE 105 mmol/L (98-107); CREATININE 3.9 mg/dL (0.6-1.3); GLUCOSE 174 mg/dL (74-106); MAGNESIUM 2.2 mg/dL (1.8-2.4); PHOSPHORUS 7.5 mg/dL (2.5-4.9); SODIUM SERUM 138 mmol/L (136-145)
[2021-03-09 06:42] LABS: UREA NITROGEN, BLOOD 123 mg/dL (7-18)
[2021-03-09 06:54] LABS: BASOPHILS % (AUTO) 0.1 % (0.0-2.0); HEMATOCRIT 33 % (39-51); HEMOGLOBIN 10.8 g/dL (13.5-17.5); LYMPHOCYTES # (AUTO) 0.4 K/uL (0.8-4.8); LYMPHOCYTES % (AUTO) 2.6 % (20.0-44.0); MEAN CORPUSCULAR HGB CONC 33 g/dl (31.0-36.0); MEAN CORPUSCULAR VOLUME 94 fL (80-96); MONOCYTES % (AUTO) 6.3 % (2.0-12.0); PLATELET COUNT (AUTO) 189 K/uL (150-450); RED BLOOD CELL COUNT(AUTO) 3.55 MIL/uL (4.5-6.0); WHITE BLOOD COUNT (AUTO) 15.3 K/uL (4.3-11.0)
--- NOTE | 2021-03-09 07:30 | NUR ---
MS RN OPENING NOTES RECEIVED PATIENT RESTING ON BED AND A/O X2. ON O2 AT 2LPM VIA NASAL CANNULA SATURATING AT 96%. WITH IV ACCESS AT RIGHT FOREARM G22 WITH 1/2NS AT 150ML/HR INFUSING WELL. SAFETY MEASURES IN PLACE. CALL LIGHT WITHIN REACH. BED ON LOWEST AND LOCKED POSITION, SIDE RAILS UP X3. WILL CONTINUE TO MONITOR.
[2021-03-09] MEDS: ENSURE ENLIVE 237 ML LIQUID (VANILLA) PO SCH ×2 (09:00→17:00)
[2021-03-09] MEDS: AMLODIPINE BESYLATE 10 MG TABLET PO SCH (09:00)
[2021-03-09] MEDS: CINACALCET HCL 30 MG TABLET PO SCH ×2 (09:03→17:00)
[2021-03-09] MEDS: PANTOPRAZOLE 40 MG TABLET.DR PO SCH (09:03)
--- NOTE | 2021-03-09 10:45 | NUR ---
RN NOTES TRANSFERRED PATIENT TO ICU AND ENDORSED TO ICU NURSE SHIMON.
[2021-03-09] MEDS ORDERED: EPINEPHRINE (1:10,000) SYRINGE 1 MG/10 ML DISP.SYRIN IVP ONE (10:47)
[2021-03-09] MEDS ORDERED: SODIUM BICARBONATE SYR 50 MEQ/50 ML DISP.SYRIN IV ONE ×2 (10:47→12:00)
[2021-03-09] MEDS ORDERED: CALCIUM CHLORIDE 1,000 MG/10 ML DISP.SYRIN IV ONE (10:47)
--- NOTE | 2021-03-09 11:10 | NUR ---
RN NOTES PATIENT TRANSFERRED FROM [facility] [place] , INTUBATED, EET/VENT SETTING AC-28, TV-450, PEEP-0, AND FIO2 60%. INSERTED ARROYO CATHETER , AND OGT. CALLED X-RAY FOR PLACEMENT. GET ORDER DIPRIVAN, AND SINDI ORDERS VIA HOSPITALIST DR HADDAD..
[2021-03-09 11:22] LABS: BASOPHILS # (AUTO) 0.1 K/uL (0.0-0.2); BASOPHILS % (AUTO) 0.4 % (0.0-2.0); EOSINOPHILS % (AUTO) 0.1 % (0.0-6.0); HEMATOCRIT 34 % (39-51); HEMOGLOBIN 10.4 g/dL (13.5-17.5); LYMPHOCYTES # (AUTO) 1.4 K/uL (0.8-4.8); LYMPHOCYTES % (AUTO) 9.5 % (20.0-44.0); MEAN CORPUSCULAR HGB CONC 31 g/dl (31.0-36.0); MEAN CORPUSCULAR VOLUME 98 fL (80-96); MONOCYTES # (AUTO) 0.4 K/uL (0.1-1.30); MONOCYTES % (AUTO) 2.5 % (2.0-12.0); NEUTROPHILS # (AUTO) 13.1 K/uL (1.8-8.9); NEUTROPHILS % (AUTO) 87.5 % (43.0-81.0); PLATELET COUNT (AUTO) 204 K/uL (150-450); RED BLOOD CELL COUNT(AUTO) 3.44 MIL/uL (4.5-6.0)
--- NOTE | 2021-03-09 11:22 | NUR ---
RT NOTE PATIENT FOUND UNCONSCIOUS AND PULSELESS. CODE BLUE PROTOCOL INITIATED AND RAN. DR. MARISCAL INTUBATED WITH 7.0ETT @24CM LIP LINE. COLOR CHANGE ON CO2 CAP ON BVM. EQUAL AND BILATERAL BREATH SOUNDS. PATIENT TRANSFERRED TO ICU. VENT SETTINGS CHARTED. ETT PATENT AND SECURED. VENT ALARMS ON AND AUDIBLE. PLUGGED IN RED OUTLET. WILL CONTINUE TO MONITOR. Addendum: 03/09/21 at 1126 by ALLISON LACEY RT Amended: Links added.
[2021-03-09] MEDS ORDERED: PHENYLEPHRINE 50 MG in IV NS 0.9% 245 ML IV PRN ×2 (11:30→12:00)
[2021-03-09 11:39] LABS: ALANINE AMINOTRANSFERASE 514 U/L (12-78); ALKALINE PHOSPHATASE 126 U/L (46-116); ASPARTATE AMINOTRANSFERASE 759 U/L (15-37); BILIRUBIN,TOTAL 0.5 mg/dL (0.2-1.0); CARBON DIOXIDE 11 mmol/L (21-32); CHLORIDE 107 mmol/L (98-107); CREATININE 4.2 mg/dL (0.6-1.3); GLUCOSE 171 mg/dL (74-106); SODIUM SERUM 143 mmol/L (136-145); TOTAL PROTEIN, SERUM 5.4 g/dL (6.4-8.2)
[2021-03-09 11:45] LABS: CALCIUM, SERUM 13.3 mg/dL (8.5-10.1); UREA NITROGEN, BLOOD 121 mg/dL (7-18)
[2021-03-09 11:52] LABS: ABG BASE EXCESS -26.4 mmol/L; ABG OXYGEN SATURATION 99.5 % (92.0-98.5); ABG PCO2 51.6 mmHg (35.0-45.0); ABG PH 6.806 (7.350-7.450); ABG PO2 401.7 mmHg (75.0-100.0); AaDO2 259.7 mmHg; COHb 0.3 % (0.5-1.5); MetHb 0.2 % (0.0-1.5); SITE, ABG Left Radial; VENT MODE, BG AC 18 400 100% +0
[2021-03-09] MEDS ORDERED: IV NS 0.9% 500 ML IV ONE (12:00)
[2021-03-09] MEDS ORDERED: IV NS 0.9% 250 ML IV PRN (13:00)
[2021-03-09] MEDS ORDERED: PROPOFOL 100 ML IV PRN (13:00)
[2021-03-09] MEDS: HEPARIN SODIUM, PORCINE 5000 UNITS/1 ML VIAL SQ SCH ×2 (13:31→19:42)
[2021-03-09] MEDS ORDERED: SODIUM BICARBONATE IV ONE (14:00)
[2021-03-09] MEDS ORDERED: [UNRECOGNIZED DRUG - OTHER] IV ONE (14:00)
--- NOTE | 2021-03-09 14:00 | NUR ---
RN NOTES GET CALL FROM PATIENTS NIECE NAME CLAUDIA, ACCORDING NIECE NOTED PATIENT DNR/DNI STATUS. PER NIECE NOTED TO SPEAK TO THE HOSPITALIST ABOUT PATIENT CONDITION. NOTIFIED DR HADDAD.
[2021-03-09 14:13] LABS: ABG BASE EXCESS -18.8 mmol/L; ABG OXYGEN SATURATION 98.6 % (92.0-98.5); ABG PO2 162.3 mmHg (75.0-100.0); AaDO2 236.9 mmHg; COHb 0.3 % (0.5-1.5); MetHb 0.1 % (0.0-1.5); O2Hb 98.2 % (94.0-97.0); PEEP,BG 0 cm H2O; SITE, ABG A-Line; VT, ABG 450 mL
--- NOTE | 2021-03-09 15:10 | NUR ---
rn notes patient getting US of bilateral lower extremities Doppler at this time.
[2021-03-09] MEDS ORDERED: DC PROPOFOL WHEN EXTUBATED XX PRN (15:20)
--- NOTE | 2021-03-09 15:30 | NUR ---
RN NOTES GET ORDER FROM HOSPITALIST DR MACHADO EXTUBATE PATIENT BECAUSE OF DNR/DNI CODE STATUS, RT NOTIFIED. STOP SEDATION AT THIS TIME.
--- NOTE | 2021-03-09 15:36 | NUR ---
RT NOTE PATIENT EXTUBATED PER DR. HADDAD ORDERS. PLACED ON 6L NASAL CANNULA. NO SOB NOTED AT THIS TIME. HR 66 SPO2 100% WILL CONTINUE TO MONITOR.
[2021-03-09] MEDS ORDERED: LORAZEPAM INJ 2 MG/ML VIAL IV PRN (17:00)
[2021-03-09] MEDS ORDERED: MORPHINE SULFATE INJ 4 MG/ML DISP.SYRIN IV PRN (17:00)
--- NOTE | 2021-03-09 17:14 | NUR ---
RN NOTES ADMINISTERED ATIVAN 2 MG/ML IV PUSH, AND MORPHINE 4 MG/ML IV PUSH FOR PATIENT COMFORT MEASURE VIA BRANDON KATHE. BP -89/52, P-95.
--- NOTE | 2021-03-09 18:30 | NUR ---
RN NOTES PATIENT CONDITION CRITICAL DOING POORLY, CONTINUED SUPPORTIVE CARE. BP-89.56, P-86, O2-64%,. R-21. FAMILY NEXT TO THE BED. PATIENT ON CHRISTY HUGGER . INFUSING SINDI 3MCG/KG/HR. ENDORSED ONCOMING NURSE FOLLOW PLAN OF CARE.
--- NOTE | 2021-03-09 19:05 | NUR ---
RECEIVED PT ON BED ON O2 6L SPO2 74 % PT IS DNR DNI, PT EYES IS FIX AND DILATED, NO GAG REFLEX NOTED, PT NEOSYNEPHRINE @ 2MCG/KG/MIN INFUSING VIA RIJ 3L CATHETER, PT HAVE HOWARD WITH BP 74/43,HR 78 HAVE ARROYO CATHETER THAT DRAINING YELLOW URINE BED ON LOWEST POSITION AND LOCKED SIDE RAILS UP X2 CALL LIGHT WITHIN REACH WILL CONT TO MONITOR
[2021-03-09] MEDS ORDERED: NOREPINEPHRINE 8 MG in IV NS 0.9% 242 ML IV PRN (20:00)
--- NOTE | 2021-03-09 20:20 | NUR ---
INFORMED DR PARMJIT [place] THAT PT BP IS STILL LOW DESPITE THE MAX DOSE OF NORSYNEPHRINE WITH ORDER TO START LEVOPHED 32MG TO TITRATE PER PROTOCOL NOTED AND CARRIED OUT
[2021-03-09] MEDS ORDERED: NOREPINEPHRINE 32 MG in IV NS 0.9% 218 ML IV PRN (20:30)
[2021-03-09] MEDS ORDERED: NOREPINEPHRINE 4 MG/4 ML AMPUL IV ONE (20:35)
--- NOTE | 2021-03-09 20:55 | NUR ---
SUPPLY PERSON PT IS DNR CODE. PT IS NONRESPONSIVE TO ANY STIMULI. PUPILS FIXED & DILATED. NO PULSES ON MAJOR ARTERIES. NO HEART BEATS. NO BREATH SOUNDS. EKG- STRAIGHT LINE. NO GAG OR CORNEAL REFLEXES. PT PRONOUNCED BY WET PROCESS MILLER HEAD-ED JHONATHAN.
--- NOTE | 2021-03-09 20:55 | NUR ---
INSIGHT DIRECTOR CALL MY ATTENTION AND TELL ME THAT PT RHYTHM IS ASYSTOLE,PT IS DNR/DNI GO TO ROOM AND ASSESS THE PT NO BREATHING IS NOTED, AND NO HEART RATE WAS HEART EYES IS FIX AND DILATED, CHARGE NURSE ED PRONOUNCE PT , WILL DO POST MORTEM CARE TO THE PT
--- NOTE | 2021-03-09 21:05 | NUR ---
INFORMED CLAUDIA NICE PT NEPHEW THAT HIS UNCLE ALREADY , HE PROVIDE THE NAME OF THE MORTUARY AND HE GIVE TELEPHONE CONSENT TO RELEASE THE BODY TO MORTUARY, HOSPITAL GRATING MACHINE OPERATOR, ADMITTING AND MD MADE AWARE OF THE PT
--- NOTE | 2021-03-09 21:15 | NUR ---
CALLED [facility] AND TALK TO BAUDILIO, PER HER [facility] WILL NOT PROCEED TO THE REFERRAL AND WE CAN RELEASE THE PT TO THE FAMILY WITH REFERRAL NUMBER CC [phone]
--- NOTE | 2021-03-09 22:22 | NUR ---
[facility] CALLED AND THEY SAID THEY CANNOT SCRATCH FINISHER PT DAMIAN, CHARGE NURSE MADE AWARE, CALLED SECURITY TO BRING PT TO THE HOSPITAL [facility], PT HAVE NO BELONGINGS, PROPER IDENTIFICATION AT PLACE
== END 2021-03-09 20:55 | DRG 871 ==
LOC: ER 10:06 → TELE 12:41 → MED 03-07 17:02 → ICU 03-09 11:00
PROVIDERS: ADMIT Student in an Organized Health Care Education/Training Program; ATTEND Student in an Organized Health Care Education/Training Program
PROC: 5A1935Z Respiratory Ventilation, Less than 24 Consecutive Hours (ICD-10-PCS; principal; 2021-03-09)
PROC: 0BH17EZ Insertion of Endotracheal Airway into Trachea, Via Natural or Artificial Opening (ICD-10-PCS; 2021-03-09)
PROC: 5A2204Z Restoration of Cardiac Rhythm, Single (ICD-10-PCS; 2021-03-09)
DX: A41.9 Sepsis, unspecified organism (principal); N17.0 Acute kidney failure with tubular necrosis; J18.9 Pneumonia, unspecified organism; G92.8 Other toxic encephalopathy; R65.21 Severe sepsis with septic shock; J96.00 Acute respiratory failure, unspecified whether with hypoxia or hypercapnia; E44.1 Mild protein-calorie malnutrition; N39.0 Urinary tract infection, site not specified; R64 Cachexia; E87.4 Mixed disorder of acid-base balance; E86.0 Dehydration; I25.10 Atherosclerotic heart disease of native coronary artery without angina pectoris; E83.52 Hypercalcemia; Z20.822 Contact with and (suspected) exposure to COVID-19; E11.65 Type 2 diabetes mellitus with hyperglycemia; Z79.84 Long term (current) use of oral hypoglycemic drugs; Z79.899 Other long term (current) drug therapy; E87.6 Hypokalemia; F03.90 Unspecified dementia, unspecified severity, without behavioral disturbance, psychotic disturbance, mood disturbance, and anxiety; D64.9 Anemia, unspecified; M47.814 Spondylosis without myelopathy or radiculopathy, thoracic region; M47.816 Spondylosis without myelopathy or radiculopathy, lumbar region; Z96.641 Presence of right artificial hip joint; E11.22 Type 2 diabetes mellitus with diabetic chronic kidney disease; I12.9 Hypertensive chronic kidney disease with stage 1 through stage 4 chronic kidney disease, or unspecified chronic kidney disease; N18.9 Chronic kidney disease, unspecified; K21.9 Gastro-esophageal reflux disease without esophagitis; R62.7 Adult failure to thrive; Z66 Do not resuscitate; I10 Essential (primary) hypertension; I49.9 Cardiac arrhythmia, unspecified; I46.9 Cardiac arrest, cause unspecified
CPT/HCPCS: 31720; 36415; 36600; 71045-TC; 76770-TC; 80048-TC; 80053-TC; 80076-TC; 81001; 82306; 82803-TC; 82962-TC; 83735-TC; 83880; 83970; 84100-TC; 84484-TC; 85025-TC; 87040-TC; 87081-TC; 87086-TC; 87186-TC; 92526; 92611-TC; 92950-TC; 93970-TC; 94002-TC; 94799-TC; 97112-TC; 97116-TC; 97530-TC; A6253; G0378; J0171; J1644; J1815; J2060; J2270; J2370; J2405; J2430; J2543; J3490; J7030; J7040; J7050; J7060